=== PATIENT | male | born 1990 | race Two or more races ===

== ENCOUNTER 2020-10-24 19:06 | Emergency (ER) | payer OTHER ==
[~2020-10-24] VITALS: Ht 172.7 cm; Wt 59.0 kg
== END 2020-10-24 22:48 | disposition home or self-care (01) ==
LOC: ER 19:06
DX: R00.2 Palpitations (principal); F06.4 Anxiety disorder due to known physiological condition

== ENCOUNTER 2020-11-07 20:33 | Emergency (ER) | payer OTHER ==
[~2020-11-07] VITALS: Ht 170.2 cm; Wt 59.0 kg
[2020-11-07] MEDS ORDERED: VISTARIL25 MG PO (21:20)
== END 2020-11-07 21:27 | disposition home or self-care (01) ==
LOC: ER 20:33
DX: R06.02 Shortness of breath (principal); F06.4 Anxiety disorder due to known physiological condition

== ENCOUNTER 2020-11-10 12:18 | Emergency (ER) | payer OTHER ==
[~2020-11-10] VITALS: Ht 337.8 cm; Wt 59.0 kg
[~2020-11-10 12:18] MED LIST: VISTARIL25 MG PO
[2020-11-10] MEDS ORDERED: ZITHROMAX500 MG PO (16:10)
== END 2020-11-10 16:26 | disposition home or self-care (01) ==
LOC: ER 12:18
DX: R00.2 Palpitations (principal); F06.4 Anxiety disorder due to known physiological condition; R06.02 Shortness of breath

== ENCOUNTER 2023-01-02 18:43 | Emergency (ER) | payer OTHER ==
[~2023-01-02] VITALS: Ht 172.7 cm; Wt 54.4 kg
[~2023-01-02 18:43] MED LIST changes: +ZITHROMAX500 MG PO
== END 2023-01-02 22:29 | disposition home or self-care (01) ==
LOC: ER 18:43
DX: K29.70 Gastritis, unspecified, without bleeding (principal)